=== PATIENT | female | born 1980 | race Hispanic/Latino ===

== ENCOUNTER 2022-02-04 08:16 | Emergency (ER) | payer MEDICAID, SELFPAY ==
--- NOTE | ~2022-02-04 | CT_ITS ---
EXAMINATION: CT brain wo con INDICATION: Headache COMPARISON: None TECHNIQUE: Standard unenhanced head CT. The dose-length product (DLP) was 529.67 mGy-cm. The mA was a djusted according to patient size. Iterative reconstruction technique was employed. FINDINGS: There is no intracranial hemorrhage, acute infarction, or abnormal mass lesion. The ventric les are normal. There is no abnormal mass effect or midline shift. The blackwell-white matter differentiat ion is normal. The basal cisterns are patent. The orbits are normal. The paranasal sinuses, mastoids and calvarium are normal. IMPRESSION: 1. No acute intracranial abnormality. Reviewed, dictated and finalized at location B.
[2022-02-04 08:19] VITALS: BP 127/94; PULSE 116; RESP 20; TEMP 37.1; O2SAT 100
[2022-02-04 08:43] LABS: Basophils Absolute Auto 0.1 K/mm3 (0.0-0.1); Eosinophils Absolute Auto 0.2 K/mm3 (0-0.3); Eosinophils Percent Auto 2.7 % (0-4.4); Hematocrit 45.5 % (37.0-47.0); Hemoglobin 14.5 g/dL (12.0-15.0); Immature Granulocyte Absolute 0.01 K/mm3 (0.00-0.031); Immature Granulocyte Percent A 0.2 % (0-0.5); Lymphocytes Absolute Auto 1.98 K/mm3 (0.9-3.2); Lymphocytes Percent Auto 31.7 % (18.3-44.2); Mean Corpuscular HGB Conc 31.9 g/dl (32-36); Mean Corpuscular Hemoglobin 32.1 pg (26-34); Mean Corpuscular Volume 100.7 fl (80-100); Mean Platelet Volume 12.2 fl (7.4-10.4); Monocytes Absolute Auto 0.5 K/mm3 (0.1-0.6); Monocytes Percent Auto 7.8 % (2.6-8.5); Neutrophils Absolute Auto 3.5 K/mm3 (1.3-6.7); Neutrophils Percent Auto 56.6 % (45.5-73.1); Platelet Count Result 219 k/mm3 (150-375); Red Blood Count 4.52 M/mm3 (4.2-5.4); Red Cell Distribution Width 11.9 % (11.5-14.5); White Blood Count 6.3 K/mm3 (4.5-10.0)
[2022-02-04 08:53] LABS: Alanine Aminotransferase 19 U/L (4-35); Alkaline Phosphatase 93 U/L (38-126); Anion Gap 8 mmol/L (8-16); Aspartate Amino Transferase 28 U/L (14-36); Bilirubin,Total 1.2 mg/dL (0.2-1.3); Blood Urea Nitrogen 13 mg/dL (7-17); Calcium 9.6 mg/dL (8.4-10.2); Carbon Dioxide 30 mmol/L (22-30); Chloride 101 mmol/L (98-107); Estimated CRCL calculation 75 ml/min; Estimated Glomerular Filt Rate > 60; Glucose 126 mg/dL (65-110); Lipase 200 U/L (23-300); Potassium 3.7 mmol/L (3.4-5.0); Sodium 139 mmol/L (137-145)
[2022-02-04 08:53] LABS: Appearance Urine Clear (Clear); Bacteria Urine Trace /hpf; Bilirubin Urine 1+ (Negative); Color Urine Yellow (Yellow); Glucose Urine UA Negative (Negative); Ketones Urine 2+ mg/dL (Negative); Leukocyte Esterase Ur 1+ LEU/UL (Negative); Mucus Urine Rare /lpf; Nitrate Urine Negative (Negative); Protein Urine 1+ mg/dL (Negative); RBC Urine 0-2 /hpf (0-2); Squamous Epithelial Cell Urine Moderate /hpf (Few); Urobilinogen Urine 0.2 mg/dL (<2.0)
[2022-02-04 08:56] LABS: Add Urine Microscopic? YES; Blood Urine Trace-Intact (Negative)
[2022-02-04] MEDS: ONDANSETRON INJ 4 MG/2 ML VIAL IV PUSH (09:12)
[2022-02-04] MEDS: SODIUM CHLORIDE 0.9% IV 1,000 ML 999 ML IV CONT (09:12)
[2022-02-04] MEDS: diphenhydrAMINE HCl INJ 50 MG/ML VIAL IV PUSH (09:13)
[2022-02-04] MEDS: methylPREDNISolone SOD SUCC 125 MG VIAL IV PUSH (09:13)
[2022-02-04] MEDS: KETOROLAC 30 MG/ML VIAL (*BKC) IV PUSH (09:13)
[2022-02-04 09:14] VITALS: BP 124/83; PULSE 92; RESP 13; O2SAT 100
--- NOTE | 2022-02-04 10:09 | ED.HA ---
HPI - Headache General Chief Complaint: Headache Stated Complaint: headache Time Seen by Provider: 02/04/22 08:42 Source: patient Mode of arrival: ambulatory Limitations: no limitations History of Present Illness HPI Narrative: Pt presents with what feels like her typical migraine RUBIO. Pt says it has nuria going on for a couple of days and her regular medicines are not relieving the pain. PT says she normally has right eye involvement with her RUBIO and does this time. Pt had MRI in not too distant past showing benign cysts. Pt took her BP and SBP was on 140's. MD elicited complaint: headache Onset (ago): day(s) (2) Onset description: gradually Location: right Severity: moderate Quality & Timing: throbbing Exacerbating factors: none Relieving factors: nothing Associated symptoms: photophobia Related Data Allergies Allergy/AdvReac Type Severity Reaction Status Date / Time morphine Allergy Rash Verified 02/04/22 08:24 Review of Systems Review of Systems: All systems reviewed & are unremarkable except as noted in HPI and below Exam Const: General: no acute distress Orientation/consciousness: patient oriented x3 HENMT: Head: normal to inspection Eyes: Conjunctivae: conjunctivae normal Pupils: Equal, round and reactive pupils present Other: r eye tearing a bit and lid depressed slighly but pt is able to open completely (pt says this is normal for her RUBIO's Neck: Neck: no meningeal signs Resp: Effort & Inspection: normal respiratory effort Auscultation: clear to auscultation bilaterally Cardio: Rate: regular rate Rhythm: regular rhythm GI: GI Palp: Yes Soft to palpation Auscultation: normal bowel sounds Skin: General skin exam: normal color Neuro: General: patient oriented x3, moves all extremities, no meningeal signs, no focal motor deficits and CN's II-XI intact bilaterally Cranial nerves: Yes Nystagmus not present Speech: normal speech Extrem: General: normal to inspection and no clubbing, cyanosis or edema Psych: Appearance: grossly normal Mental Status: mental status grossly normal Thought content: Yes Normal thought content present Course Vital Signs Vital signs: Vital Signs Temperature 98.7 F 02/04/22 08:19 Pulse Rate 116 H 02/04/22 08:19 Respiratory Rate 20 02/04/22 08:19 Blood Pressure 127/94 H 02/04/22 08:19 Pulse Oximetry 100 02/04/22 08:19 Temperature 98.7 F 02/04/22 08:19 Pulse Rate 86 02/04/22 10:31 Respiratory Rate 16 02/04/22 10:31 Blood Pressure 126/86 02/04/22 10:31 Pulse Oximetry 96 02/04/22 10:31 MDM - Headache Lab Data Result diagrams: 02/04/22 08:37 02/04/22 08:37 Labs: Lab Results 02/04/22 02/04/22 02/04/22 Range/Units 08:34 08:37 08:37 WBC 6.3 (4.5-10.0) K/mm3 RBC 4.52 (4.2-5.4) M/mm3 Hgb 14.5 (12.0-15.0) g/dL Hct 45.5 (37.0-47.0) % MCV 100.7 H (80-100) fl MCH 32.1 (26-34) pg MCHC 31.9 L (32-36) g/dl RDW 11.9 (11.5-14.5) % Plt Count 219 (150-375) k/mm3 MPV 12.2 H (7.4-10.4) fl Immature Gran % (Auto) 0.2 (0-0.5) % Neut % (Auto) 56.6 (45.5-73.1) % Lymph % (Auto) 31.7 (18.3-44.2) % [place] % (Auto) 7.8 (2.6-8.5) % Eos % (Auto) 2.7 (0-4.4) % Baso % (Auto) 1.0 (0.2-1.2) % Lymph # (Auto) 1.98 (0.9-3.2) K/mm3 [place] # (Auto) 0.5 (0.1-0.6) K/mm3 Eos # (Auto) 0.2 (0-0.3) K/mm3 Baso # (Auto) 0.1 (0.0-0.1) K/mm3 Abs Immat Gran (auto) 0.01 (0.00-0.031) K/mm3 Absolute Neuts (auto) 3.5 (1.3-6.7) K/mm3 Absolute Nucleated RBC 0.0 (0.0-0.012) K/mm3 Nucleated RBC % 0.0 (0.0-0.2) % Sodium 139 (137-145) mmol/L Potassium 3.7 (3.4-5.0) mmol/L Chloride 101 (98-107) mmol/L Carbon Dioxide 30 (22-30) mmol/L Anion Gap 8 (8-16) mmol/L BUN 13 (7-17) mg/dL Creatinine 0.80 (0.7-1.0) mg/dL Estim Creat Clear Calc 75 ml/min Estimated GFR > 60 (59 - ) Glucose 126 H (65-110
[2022-02-04 10:31] VITALS: BP 126/86; PULSE 86; RESP 16; O2SAT 96
== END 2022-02-04 10:37 | disposition home or self-care (01) ==
PROVIDERS: Emergency Provider Emergency Medicine
DX: R51.9 Headache, unspecified (principal)
CPT/HCPCS: 36415; 70450; 80053; 81001; 83690; 85025; 96361; 96374; 96375; 99284; J1200; J1885; J2405; J2930; J7030

== ENCOUNTER 2023-06-17 07:58 | Emergency (ER) | payer OTHER, BC, SELFPAY ==
--- NOTE | ~2023-06-17 | CT_ITS ---
EXAMINATION: CT lumbar spine wo con DATE: 06/17/2023 08:55 INDICATION: Midline low back pain. TECHNIQUE: Computed tomography (CT) of the lumbar spine was performed without intravenous contrast. A utomated exposure control and iterative reconstruction technique were employed. The dose-length produ ct was 438.85 mGy-cm. COMPARISON: None FINDINGS: The rectum is distended and contains stool. Bone alignment is normal. Vertebral body height s and intervertebral disc heights are normal. The following disc levels are specifically discussed: L1-L2: The disc does not extend beyond the endplate margin. There is mild bilateral facet joint osteo arthritis. There is no neural foraminal stenosis. There is no central canal stenosis. L2-L3: The disc does not extend beyond the endplate margin. There is mild bilateral facet joint osteo arthritis. There is no neural foraminal stenosis. There is no central canal stenosis. L3-L4: The disc does not extend beyond the endplate margin. There is mild bilateral facet joint osteo arthritis. There is no neural foraminal stenosis. There is no central canal stenosis. L4-L5: The disc is bulging. There is moderate bilateral facet joint osteoarthritis. There is mild nabeel ateral neural foraminal stenosis. There is mild central canal stenosis. L5-S1: The disc does not extend beyond the endplate margin. There is severe bilateral facet joint ost eoarthritis. There is no neural foraminal stenosis. There is no central canal stenosis. IMPRESSION: 1. Mild lumbar spondylosis. 2. Distended rectum containing stool. Reviewed, dictated and finalized at location A.
[2023-06-17 08:01] VITALS: BP 131/90; PULSE 76; RESP 16; TEMP 36.6; O2SAT 100
--- NOTE | 2023-06-17 08:59 | PC.NURSE ---
patient reports she is post-menopausal and does not have menses cycle. she refuses tylenol and lidocaine patch. it is like candy to me . Provider aware
--- NOTE | 2023-06-17 09:40 | PC.NURSE ---
patient eloped. provider aware
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
== END 2023-06-17 09:41 | disposition home or self-care (01) ==
PROVIDERS: Emergency Provider Preventive Medicine Aerospace Medicine
DX: M54.31 Sciatica, right side (principal)
CPT/HCPCS: 72131; 99284

== ENCOUNTER 2023-12-14 10:38 | Emergency (ER) | payer BC, SELFPAY ==
[2023-12-14] VITALS (12 sets, daily range): BP systolic 124–134; BP diastolic 88–93; PULSE 76–96; RESP 12–19; TEMP 37.4; O2SAT 96–100
--- NOTE | ~2023-12-14 | XR_ITS ---
Portable chest x-ray Comparison: None Clinical History: Cough, fever Findings: There is linear scar or atelectasis left lung base, otherwise clear lungs. Cardiomediasti nal silhouette is stable. Bones and soft tissues are unremarkable. Impression: Linear scar or atelectasis left lung base, otherwise clear lungs. Reviewed, dictated and finalized at location . Impression: Linear scar or atelectasis left lung base, otherwise clear lungs.
[2023-12-14] MEDS: SODIUM CHLORIDE 0.9% IV 1,000 ML 999 ML IV CONT (11:10)
[2023-12-14] MEDS: KETOROLAC 30 MG/ML VIAL (*BKC) IV PUSH (11:11)
[2023-12-14 11:38] LABS: Influenza A QL RT-PCR Negative (Negative); Influenza B QL RT-PCR Positive (Negative); RSV RNA, RT-PCR Negative (Negative); SARS-CoV-2 RNA PCR Negative (Negative)
--- NOTE | 2023-12-14 11:59 | ED.GENADULT ---
HPI - General Adult General Chief complaint: Upper Respiratory Infection Stated complaint: URI sx Time Seen by Provider: 12/14/23 10:54 History of Present Illness HPI narrative: Patient is a 43-year-old female who presents ER with body aches and cough. Ongoing for 4 days. Unsure if she has had fevers. She has had chills. Cough is nonproductive. She has developed a hoarse voice. No chest pain or chest pressure. No urinary symptoms or abdominal symptoms. Related Data Allergies Allergy/AdvReac Type Severity Reaction Status Date / Time morphine Allergy Rash Verified 12/14/23 11:06 Review of Systems Review of Systems: All systems reviewed & are unremarkable except as noted in HPI and below Constitutional: Constitutional: Reports chills, Reports fatigue and Reports weakness ENT: Denies nasal congestion and Reports sore throat Cardiovascular: Cardiovascular: Reports no additional cardiovascular complaints Respiratory: Respiratory: Reports cough, Denies dyspnea and Denies wheezing Gastrointestinal: Gastrointestinal: Reports no additional gastrointestinal complaints PMFSH Past Medical History Medical History (Updated 12/14/23 @ 12:05 by Les Combs MD) No significant past medical history Surgical History Surgical History (Updated 06/17/23 @ 19:25 by Sam Dyson MD) No significant past surgical history Social History Social History (Updated 06/17/23 @ 19:25 by Sam Dyson MD) Smoking status: Never smoker Alcohol intake: never Substance use: never Exam Narrative: GENERAL: Well-appearing, well-nourished, and in no acute distress. HEAD: Normocephalic, atraumatic. EYES: PERRL and EOMI. ENT: Mucous membranes moist. Normal-appearing posterior oropharynx. NECK: Supple. CHEST: Clear to auscultation. No respiratory distress. HEART: Regular rate and rhythm. Normal peripheral pulses. ABDOMEN: Soft, nontender, nondistended. EXTREMITIES: Normal range of motion. No edema. NEURO: Alert and oriented x3. PSYCH: Normal mood and affect. Course Course Emergency Course: Patient form results. She is outside the window to receive Tamiflu. Patient received Toradol and IV fluids while here. Vital Signs Vital signs: Vital Signs Temperature 99.3 F 12/14/23 10:55 Pulse Rate 90 12/14/23 10:55 Respiratory Rate 18 12/14/23 10:55 Blood Pressure 132/93 H 12/14/23 10:55 Pulse Oximetry 100 12/14/23 10:55 Oxygen Delivery Room Air 12/14/23 10:55 Temperature 99.3 F 12/14/23 10:55 Pulse Rate 90 12/14/23 10:55 Respiratory Rate 18 12/14/23 10:55 Blood Pressure 132/93 H 12/14/23 10:55 Pulse Oximetry 99 12/14/23 10:58 Oxygen Delivery Room Air 12/14/23 10:58 Medical Decision Making Vital Signs Vital Signs: Vital Signs Temperature 99.3 F 12/14/23 10:55 Pulse Rate 90 12/14/23 10:55 Respiratory Rate 18 12/14/23 10:55 Blood Pressure 132/93 H 12/14/23 10:55 Pulse Oximetry 100 12/14/23 10:55 Oxygen Delivery Room Air 12/14/23 10:55 Temperature 99.3 F 12/14/23 10:55 Pulse Rate 90 12/14/23 10:55 Respiratory Rate 18 12/14/23 10:55 Blood Pressure 132/93 H 12/14/23 10:55 Pulse Oximetry 99 12/14/23 10:58 Oxygen Delivery Room Air 12/14/23 10:58 Lab Data Labs: Lab Results 12/14/23 Range/Units 10:46 Influenza A (RT-PCR) Negative (Negative) Influenza B (RT-PCR) Positive A (Negative) RSV (RT-PCR) Negative (Negative) SARS-CoV-2 RNA (RT-PCR) Negative (Negative) Imaging Data Radiologist's impression: ITS Impressions Chest X-Ray 12/14/23 11:49 Impression: Linear scar or atelectasis left lung base, otherwise clear lungs. Discharge Plan Discharge Clinical Impression: Influenza B Patient Disposition: Home, Self-Care Condition: Stable Instructions: Influenza (ED) Additional Instructions: As discussed you have a viral illness. Unfort
== END 2023-12-14 13:13 | disposition home or self-care (01) ==
PROVIDERS: Physician Assistant; Emergency Provider Emergency Medicine
DX: J10.1 Influenza due to other identified influenza virus with other respiratory manifestations (principal); Z20.822 Contact with and (suspected) exposure to COVID-19
CPT/HCPCS: 71045; 87637; 96361; 96374; 99284; J1885; J7030

== ENCOUNTER 2024-09-04 11:53 | Emergency (ER) | payer SELFPAY ==
[2024-09-04] VITALS (19 sets, daily range): BP systolic 118–133; BP diastolic 79–97; PULSE 97; RESP 16; TEMP 36.1; O2SAT 94–100
--- NOTE | ~2024-09-04 | CT_ITS ---
EXAMINATION: CT cervical spine wo con DATE: 09/04/2024 13:33 INDICATION: Right neck pain. TECHNIQUE: Computed tomography (CT) of the cervical spine was performed without intravenous contrast. Automated exposure control and iterative reconstruction technique were employed. The dose-length pro duct was 275.57 mGy-cm. COMPARISON: None FINDINGS: There is kyphosis of cervical spine. There are changes of anterior fusion procedure from C4 to C6 with interbody devices and anterior plate and screws. There is bridging interbody bone at C5-C 6. Vertebral body heights are normal. Intervertebral disc heights are normal. The following disc leve ls are specifically discussed: C2-C3: There is no uncovertebral joint osteoarthritis. There is no facet joint osteoarthritis. There is no neural foraminal stenosis. There is no central canal stenosis. C3-C4: There is no uncovertebral joint osteoarthritis. There is no facet joint osteoarthritis. There is no neural foraminal stenosis. There is no central canal stenosis. C4-C5: There is no uncovertebral joint hypertrophy. There is mild bilateral facet joint osteoarthriti s. There is no neural foraminal stenosis. There is no central canal stenosis. C5-C6: There is mild left uncovertebral joint hypertrophy. There is mild right facet joint osteoarthr itis. There is mild left neural foraminal stenosis. There is no central canal stenosis. C6-C7: There is no uncovertebral joint osteoarthritis. There is no facet joint osteoarthritis. There is no neural foraminal stenosis. There is no central canal stenosis. C7-T1: There is no uncovertebral joint osteoarthritis. There is mild bilateral facet joint osteoarthr itis. There is no neural foraminal stenosis. There is no central canal stenosis. IMPRESSION: 1. Anterior fusion procedure from C4 to C6. 2. Mild cervical spondylosis. Reviewed, dictated and finalized at location A. EY MOTOR OPERATOR
--- NOTE | 2024-09-04 13:25 | ED_ITS ---
HPI - Extremity Problem General Chief complaint: Extremity Problem,Nontraumatic Stated complaint: pain on right side of body Time Seen by Provider: 09/04/24 12:46 History of Present Illness HPI Narrative: 44-year-old female presenting with acute on chronic neck pain. States that she had surgery on her neck approximately 14 months ago in [facility] as the surgery would not be covered by insurance here. States that she had follow-up with them over the summer and they gave her more of the medications that they had sent her home on. Unfortunately she is running out of these medicines and she feels that her pain has worsened. She sometimes has numbness in this arm but not today. Denies weakness. No further complaints. Related Data Allergies Allergy/AdvReac Type Severity Reaction Status Date / Time morphine Allergy Itching Verified 09/04/24 12:02 Review of Systems Review of Systems: All systems reviewed & are unremarkable except as noted in HPI and below PMFSH Past Medical History Medical History No significant past medical history Surgical History Surgical History No significant past surgical history Social History Social History Smoking status: Never smoker Alcohol intake: never Substance use: never Exam Narrative: GENERAL: Well-appearing, well-nourished, and in no acute distress. HEAD: Normocephalic, atraumatic. EYES: PERRLA and EOMI. ENT: Grossly unremarkable NECK: Supple. no midline tenderness, tender right paraspinal musculature ex tending into right trap and shoulder and into the upper arm, distal ROM is intact though she is hesitant to do any shoulder abduction as it elicits severe pain CHEST: No respiratory distress. HEART: Regular rate and rhythm. No murmur heard. Normal peripheral pulses. ABDOMEN: Soft, nontender, nondistended, normal active bowel sounds. EXTREMITIES: as above, no sensory deficits of the right arm, distal pulses intact SKIN: Warm, dry, no rash. NEURO: No focal deficits. Alert and oriented x3. PSYCH: Normal mood and affect. Course Vital Signs Vital signs: Vital Signs Temperature 97 F L 09/04/24 11:56 Pulse Rate 97 09/04/24 11:56 Respiratory Rate 16 09/04/24 11:56 Blood Pressure 126/94 H 09/04/24 11:56 Pulse Oximetry 100 09/04/24 11:56 Oxygen Delivery Room Air 09/04/24 11:56 Temperature 97 F L 09/04/24 11:56 Pulse Rate 97 09/04/24 11:56 Respiratory Rate 16 09/04/24 11:56 Blood Pressure 120/80 09/04/24 16:00 Pulse Oximetry 100 09/04/24 16:01 Oxygen Delivery Room Air 09/04/24 11:56 MDM - Extremity (Nontraumatic) MDM Narrative Medical decision making narrative: 44-year-old female presenting with acute on chronic neck pain radiating into her right arm. Vitals stable. Exam remarkable for the above. Patient has her medications on hand from her surgeon. Appears she has been taking cyclobenzaprine as well as an NSAID. She is taking some supplement that is [id number]. CT cervical spine shows no acute abnormalities. She has an anterior fusion as expected without any acute abnormalities. Blood work without acute abnormalities. Patient given a migraine cocktail and Flexeril and reports improvement in her pain. She feels comfortable going home which I think is reasonable. Will send in for naproxen and Flexeril. Advised that she follow- up closely with primary care. Appropriate return precautions given. Discharged in stable condition. Differential Diagnosis Differential diagnosis: Likely other ( Acute on chronic neck pain, cervical strain, migraines) Medical Records Attestation: I reviewed the patient's medical records. Lab Data Attestation: I reviewed the patient's lab results. 09/04/24 13:46 09/04/24 13:46 Labs: Lab Results 09/04/24 Range/Units 13:46 WBC 5.7 (4.5-10.0) K/mm3 RBC 4.71 (4.2-5.4) M/mm3 Hgb 15.1 H (12.0-15.0) g/dL Hct 44.9 (37.0-47.0) % MCV 95.3 (80-100) fl MCH 32.1 (26-34) pg MCHC 33.6 (32-36) g/dl RDW 12.0 (11.5-14.5) % Plt Count 191 (150-375) k/mm3 MPV 13.0 H (7.4-10.4) fl Immature Gran % (Auto) 0.0 (0-0.5) % Neut % (Auto) 52.4 (45.5-73.1) % Lymph % (Auto) 33.4 (18.3-44.2) % [place] % (Auto) 11.4 H (2.6-8.5) % Eos % (Auto) 1.6 (0-4.4) % Baso % (Auto) 1.2 (0.2-1.2) % Lymph # (Auto) 1.90 (0.9-3.2) K/mm3 [place] # (Auto) 0.7 H (0.1-0.6) K/mm3 Eos # (Auto) 0.1 (0-0.3) K/mm3 Baso # (Auto) 0.1 (0.0-0.1) K/mm3 Abs Immat Gran (auto) 0.00 (0.00-0.031) K/mm3 Absolute Neuts (auto) 3.0 (1.3-6.7) K/mm3 Absolute Nucleated RBC 0.000 (0.0-0.012) K/mm3 Nucleated RBC % 0.0 (0.0-0.2) % Sodium 138 (137-145) mmol/L Potassium 4.2 (3.4-5.0) mmol/L Chloride 102 (98-107) mmol/L Carbon Dioxide 30 (22-30) mmol/L Anion Gap 6 (4-12) mmol/L BUN 16 (7-17) mg/dL Creatinine 0.70 (0.7-1.0) mg/dL Estim Creat Clear Calc 82 ml/min Estimated GFR > 60 (59 - ) Glucose 94 (65-110) mg/dL Calcium 9.9 (8.4-10.2) mg/dL Imaging Data Radiologist's impression: ITS Impressions Cervical Spine CT 09/04/24 13:36 IMPRESSION: 1. Anterior fusion procedure from C4 to C6. 2. Mild cervical spondylosis. Critical Care Time Critical Care Time Critical Care Time: No Discharge Plan Discharge Clinical Impression: Neck pain with history of cervical spinal surgery, Migraine Patient Disposition: Home, Self-Care Condition: Stable Instructions: Antibiotic Form, Neck Pain (ED) Additional Instructions: The CT scan today shows no acute abnormalities. We have sent in for prescriptions for pain control. Please follow-up closely with primary care. If your symptoms worsen or other concerning symptoms arise, please return to the ER. Prescriptions: New naproxen 500 mg tablet 500 mg PO BID PRN (Reason: pain) Qty: 30 0RF cyclobenzaprine 10 mg tablet 10 mg PO TID PRN (Reason: muscle spasm) Qty: 30 0RF No Action clonazepam 0.5 mg tablet 0.5 mg PO HS Qty: 7 0RF Rx Instructions: administer 30 minutes before bedtime sumatriptan succinate 25 mg tablet 25 mg PO ONCE Qty: 20 0RF cyclobenzaprine 5 mg tablet 5 mg PO TID PRN (Reason: muscle spasm) Qty: 12 0RF lidocaine [Lidoderm] 5 % adhesive patch,medicated 1 patch topical DAILY Qty: 15 0RF Rx Instructions: leave on most painful area for up to 12 hrs Follow-up/Referrals: Angel Mckeon MD [Physician] -
[2024-09-04] MEDS: ONDANSETRON INJ 4 MG/2 ML VIAL (13:44)
[2024-09-04] MEDS: KETOROLAC 15 MG/ML VIAL (*BKC) IV PUSH (13:44)
[2024-09-04] MEDS: CYCLOBENZAPRINE HCL 10 MG TABLET PO (13:44)
[2024-09-04 13:53] LABS: Basophils Absolute Auto 0.1 K/mm3 (0.0-0.1); Basophils Percent Auto 1.2 % (0.2-1.2); Eosinophils Absolute Auto 0.1 K/mm3 (0-0.3); Eosinophils Percent Auto 1.6 % (0-4.4); Hematocrit 44.9 % (37.0-47.0); Hemoglobin 15.1 g/dL (12.0-15.0); Lymphocytes Percent Auto 33.4 % (18.3-44.2); Mean Corpuscular HGB Conc 33.6 g/dl (32-36); Mean Corpuscular Hemoglobin 32.1 pg (26-34); Mean Corpuscular Volume 95.3 fl (80-100); Monocytes Absolute Auto 0.7 K/mm3 (0.1-0.6); Monocytes Percent Auto 11.4 % (2.6-8.5); Neutrophils Percent Auto 52.4 % (45.5-73.1); Platelet Count Result 191 k/mm3 (150-375); Red Blood Count 4.71 M/mm3 (4.2-5.4); White Blood Count 5.7 K/mm3 (4.5-10.0)
[2024-09-04 14:02] LABS: Anion Gap 6 mmol/L (4-12); Blood Urea Nitrogen 16 mg/dL (7-17); Calcium 9.9 mg/dL (8.4-10.2); Carbon Dioxide 30 mmol/L (22-30); Chloride 102 mmol/L (98-107); Estimated CRCL calculation 82 ml/min; Estimated Glomerular Filt Rate > 60; Glucose 94 mg/dL (65-110); Potassium 4.2 mmol/L (3.4-5.0); Sodium 138 mmol/L (137-145)
[2024-09-04] MEDS: SODIUM CHLORIDE 0.9% IV 1,000 ML 999 ML IV CONT (14:30)
[2024-09-04] MEDS: PROCHLORPERAZINE EDISYLATE 10 MG/2 ML VIAL IV PUSH (14:30)
[2024-09-04] MEDS: diphenhydrAMINE HCl INJ 50 MG/ML VIAL 25 MG IV PUSH (14:30)
== END 2024-09-04 16:32 | disposition home or self-care (01) ==
PROVIDERS: Emergency Provider Emergency Medicine
DX: M54.2 Cervicalgia (principal); G43.909 Migraine, unspecified, not intractable, without status migrainosus
CPT/HCPCS: 36415; 72125; 80048; 85025; 96361; 96374; 96375; 99284; A9270; J0780; J1200; J1885; J2405; J7030

== ENCOUNTER 2024-09-13 07:39 | Emergency (ER) | payer SELFPAY ==
--- NOTE | ~2024-09-13 | XR_ITS ---
XR chest 1V portable 09/13/2024 08:41 Indication: Chest pain and cough Procedure: AP portable chest Comparison: 12/14/2023 Findings: There is multifocal pneumonia involving both lungs, most confluent in the right upper lobe. No significant effusion. No pneumothorax identified, although the lung apices are excluded. No acute osseous abnormality. Impression: 1: Multifocal bilateral pneumonia. Reviewed, dictated and finalized at location B. SHER POLISHER Impression: 1: Multifocal bilateral pneumonia.
[2024-09-13 07:52] VITALS: BP 124/80; PULSE 110; RESP 20; TEMP 38.2; O2SAT 100
[2024-09-13] MEDS: ACETAMINOPHEN 500 MG TABLET 1000 MG (08:01)
--- NOTE | 2024-09-13 08:23 | ED.URI ---
HPI - URI/Sore Throat General Chief Complaint: Upper Respiratory Infection Stated Complaint: URI, fever Time Seen by Provider: 09/13/24 07:49 History of Present Illness HPI Narrative: Patient states that for the last few days she has runny nose, cough, and now with some chest pain, fevers and chills. Related Data Allergies Allergy/AdvReac Type Severity Reaction Status Date / Time morphine Allergy Itching Verified 09/04/24 12:02 Review of Systems Review of Systems: All systems reviewed & are unremarkable except as noted in HPI and below PMFSH Past Medical History Medical History No significant past medical history Surgical History Surgical History No significant past surgical history Social History Social History Smoking status: Never smoker Alcohol intake: never Substance use: never Exam Narrative: EXAMINATION OF ORGAN SYSTEMS/BODY AREAS: Constitutional: Vital signs per nursing GENERAL:[No acute distress, non-toxic appearing.] HEAD: Normal with no signs of head trauma. EYES: EOMI, conjunctiva normal ENT: Hearing grossly intact LUNGS: Nonlabored breathing. slightly diminished lung sounds bilaterally HEART: slightly tachycardic ABD: [Soft], [nontender to palpation] EXT: Normal range of motion, No lower extremity swelling or tenderness SKIN: [No rashes or lesions.] NEURO: [Alert and oriented x 3. No gross focal sensory or strength deficits.] PSYCH: Normal affect Course Vital Signs Vital signs: Vital Signs Temperature 100.8 F H 09/13/24 07:52 Pulse Rate 110 H 09/13/24 07:52 Respiratory Rate 20 09/13/24 07:52 Blood Pressure 124/80 09/13/24 07:52 Pulse Oximetry 100 09/13/24 07:52 Oxygen Delivery Room Air 09/13/24 07:52 Temperature 100.8 F H 09/13/24 07:52 Pulse Rate 110 H 09/13/24 07:52 Respiratory Rate 20 09/13/24 07:52 Blood Pressure 124/80 09/13/24 07:52 Pulse Oximetry 100 09/13/24 07:52 Oxygen Delivery Room Air 09/13/24 07:52 MDM - URI/Sore Throat MDM Narrative Medical decision making narrative: Patient presenting with URI symptoms for the last 4-5 days, she does have a slight cough. Some diminished breath sounds. otherwise well appearing. Slightly tachycardic however I suspect that is from the fever, no DVT symptoms or risk factors for me to be concerned about PE. she is treated symptomatically, chest x-ray unfortunately does show pneumonia with infiltrates in the right upper lobe; she is given antibiotics, agreeable to follow-up, With strict return precautions. Family/ friend at bedside. Lab Data Labs: Lab Results 09/13/24 09/13/24 Range/Units 07:50 08:56 Influenza A (RT-PCR) Negative (Negative) Influenza B (RT-PCR) Negative (Negative) RSV (RT-PCR) Negative (Negative) SARS-CoV-2 RNA (RT-PCR) Negative (Negative) Group A Strep (PCR) Not detected (Negative) Discharge Plan Discharge Clinical Impression: Pneumonia Patient Disposition: Home, Self-Care Condition: Stable Instructions: Antibiotic Form, Pneumonia (ED) Additional Instructions: please take all the antibiotics as prescribed, if you start having any worsening chest pain, shortness of breath, or anything else concerning, please come back to the emergency room immediately. Please follow-up with your primary care doctor in the next few days to make sure that you are getting better. Patient Language: [place] Prescriptions: New azithromycin 250 mg tablet 250 mg PO DAILY 4 Days Qty: 4 0RF Rx Instructions: start on day 2 of therapy amoxicillin-pot clavulanate 875-125 mg tablet 1 tablet PO Q12H Qty: 10 0RF acetaminophen [Tylenol Extra Strength] 500 mg tablet 1,000 mg PO Q6H PRN (Reason: pain) Qty: 50 0RF famotidine 20 mg tablet 20 mg PO DAILY Qty: 30 0RF ibuprofen 600 mg tablet 600 mg PO TID PRN (Reason: fever or pain) Qty: 30 0RF ondansetron 4 mg tablet,disintegrating 4 mg PO Q8H PRN (Reason: nausea and vomiting) Qty: 10 0RF No Action clonazepam 0.5 mg tablet 0.5 mg PO HS Qty: 7 0RF Rx Instructions: administer 30 minutes before bedtime sumatriptan succinate 25 mg tablet 25 mg PO ONCE Qty: 20 0RF cyclobenzaprine 5 mg tablet 5 mg PO TID PRN (Reason: muscle spasm) Qty: 12 0RF lidocaine [Lidoderm] 5 % adhesive patch,medicated 1 patch topical DAILY Qty: 15 0RF Rx Instructions: leave on most painful area for up to 12 hrs naproxen 500 mg tablet 500 mg PO BID PRN (Reason: pain) Qty: 30 0RF cyclobenzaprine 10 mg tablet 10 mg PO TID PRN (Reason: muscle spasm) Qty: 30 0RF Follow-up/Referrals: UNKNOWN,DOCTOR [Primary Care Provider] -
[2024-09-13 08:39] LABS: Influenza A QL RT-PCR Negative (Negative); Influenza B QL RT-PCR Negative (Negative); RSV RNA, RT-PCR Negative (Negative); SARS-CoV-2 RNA PCR Negative (Negative)
[2024-09-13 09:15] VITALS: BP 118/78; PULSE 102; RESP 18; TEMP 37.7; O2SAT 97
[2024-09-13 09:30] LABS: Strep Group A RT-PCR NOT DETECTED (Negative)
[2024-09-13] MEDS: ONDANSETRON HCL ODT 4 MG TABLET PO (09:58)
[2024-09-13] MEDS: AMOXICILLIN/CLAVULANATE K 875-125 MG TAB 1 TABLET PO (09:58)
[2024-09-13] MEDS: AZITHROMYCIN 250 MG TABLET 500 MG PO (09:58)
[2024-09-13] MEDS: KETOROLAC 30 MG/ML VIAL (*BKC) 15 MG IM (09:58)
[2024-09-13 10:26] VITALS: BP 114/70; PULSE 92; RESP 16; TEMP 37.1; O2SAT 98
== END 2024-09-13 10:29 | disposition home or self-care (01) ==
PROVIDERS: Emergency Provider Emergency Medicine
DX: J18.9 Pneumonia, unspecified organism (principal); Z20.822 Contact with and (suspected) exposure to COVID-19
CPT/HCPCS: 71045; 87637; 87651; 96372; 99283; A9270; J1885

== ENCOUNTER 2025-08-21 08:07 | Emergency (ER) | payer SELFPAY ==
--- OUTSIDE RECORDS SUMMARY | 2021-10-13 08:42 | XMS_ITS | Continuity of Care Document ---
Author Organization [facility] Address [address] [place] [address] Phone Care Team Providers Care Banking Management Consulting Manager Name Role Phone Ching Santacruz Unavailable Unavailable Procedures Procedure Date Voided Encounter Voided Encounter Advance Directives Directive Yes / No Effective Date File Name No Information Encounters Encounter Description Practice Location Reason(s) For Visit Diagnoses Date Provider Providers Copied on Encounter [facility] , [address], [place], [place], [address] [place] [address], tel:[phone] Urgent Care No Information Tyler Flower. [address], [place], [address] [place] [address], . tel:[phone] [facility] , [address], [place], [address] [place] [address], tel:[phone] T Urgent Care No Information Tyler Flower. [address], [place], [address] [place] [address], . tel:[phone] Referring Provider: Ching Scott [address], [place], [address]. tel:[phone] Family History Family Member Type Diagnosis Age At Onset No Information Payers Payer name Insurance type Covered alliance party ID Marielos encarnacion(s) Peterson 16 [id number] Social History Type Description Quantity Date Captured Comments Sex Female Smoking Status No Information Chief Complaint And Reason For Visit No Information Reason For Referral Reason For Referral No Information History Of Present Illness Encounter Date Complaint History Of Prese nt Illness No Information Functional Status Date Functional Assessmen t No Information Instructions Date Instruction Additional Infor mation No Information Assessments Type Assessment Date No Information Patient Care Teams Name Effective Dates (start - stop) Status Members No Information
--- OUTSIDE RECORDS SUMMARY | 2021-10-13 08:42 | XMS_ITS | Continuity of Care Document ---
Author Organization [facility] Address [address] [place] [address] Phone Care Team Providers Care Recreational Vehicle Repairer Name Role Phone Ching Santacruz Unavailable Unavailable Procedures Procedure Date Voided Encounter Voided Encounter Advance Directives Directive Yes / No Effective Date File Name No Information Encounters Encounter Description Practice Location Reason(s) For Visit Diagnoses Date Provider Providers Copied on Encounter [facility] , [address], [place], [place], [address] [place] [address], tel:[phone] Urgent Care No Information Tyler Flower. [address], [place], [address] [place] [address], . tel:[phone] [facility] , [address], [place], [address] [place] [address], tel:[phone] T Urgent Care No Information Tyler Flower. [address], [place], [address] [place] [address], . tel:[phone] Referring Provider: Ching Scott [address], [place], [address]. tel:[phone] Family History Family Member Type Diagnosis Age At Onset No Information Payers Payer name Insurance type Covered democrat ID Marielos encarnacion(s) Peterson 16 [id number] Social History Type Description Quantity Date Captured [...]
--- OUTSIDE RECORDS SUMMARY | 2021-10-13 08:42 | XMS_ITS | Continuity of Care Document ---
Author Organization [facility] Address [address] [place] [address] Phone Care Team Providers Care Used Car Make Ready Mechanic Name Role Phone Ching Santacruz Unavailable Unavailable Procedures Procedure Date Voided Encounter Voided Encounter Advance Directives Directive Yes / No Effective Date File Name No Information Encounters Encounter Description Practice Location Reason(s) For Visit Diagnoses Date Provider Providers Copied on Encounter [facility] , [address], [place], [place], [address] [place] [address], tel:[phone] Urgent Care No Information Tyler Flower. [address], [place], [address] [place] [address], . tel:[phone] [facility] , [address], [place], [address] [place] [address], tel:[phone] T Urgent Care No Information Tyler Flower. [address], [place], [address] [place] [address], . tel:[phone] Referring Provider: Ching Scott [address], [place], [address]. tel:[phone] Family History Family Member Type Diagnosis Age At Onset No Information Payers Payer name Insurance type Covered alliance party ID Marielos encarnacion(s) Peterson 16 [id number] Social History Type Description Quantity Date Captured [...]
--- OUTSIDE RECORDS SUMMARY | 2021-10-13 08:42 | XMS_ITS | Continuity of Care Document ---
Author Organization [facility] Address [address] [place] [address] Phone Care Team Providers Care Hoisting Machine Operator Name Role Phone Ching Santacruz Unavailable Unavailable Procedures Procedure Date Voided Encounter Voided Encounter Advance Directives Directive Yes / No Effective Date File Name No Information Encounters Encounter Description Practice Location Reason(s) For Visit Diagnoses Date Provider Providers Copied on Encounter [facility] , [address], [place], [place], [address] [place] [address], tel:[phone] Urgent Care No Information Tyler Flower. [address], [place], [address] [place] [address], . tel:[phone] [facility] , [address], [place], [address] [place] [address], tel:[phone] T Urgent Care No Information Tyler Flower. [address], [place], [address] [place] [address], . tel:[phone] Referring Provider: Ching Scott [address], [place], [address]. tel:[phone] Family History Family Member Type Diagnosis Age At Onset No Information Payers Payer name Insurance type Covered constitution party ID Marielos encarnacion(s) Peterson 16 [id number] Social History Type Description Quantity Date Captured [...]
--- OUTSIDE RECORDS SUMMARY | 2021-10-13 08:42 | XMS_ITS | Continuity of Care Document ---
Author Organization [facility] Address [address] [place] [address] Phone Care Team Providers Care Machine Deburrer Name Role Phone Ching Santacruz Unavailable Unavailable Procedures Procedure Date Voided Encounter Voided Encounter Advance Directives Directive Yes / No Effective Date File Name No Information Encounters Encounter Description Practice Location Reason(s) For Visit Diagnoses Date Provider Providers Copied on Encounter [facility] , [address], [place], [place], [address] [place] [address], tel:[phone] Urgent Care No Information Tyler Flower. [address], [place], [place], [address] [place] [address], . tel:[phone] [facility] , [address], [place], [place], [address] [place] [address], tel:[phone] T Urgent Care No Information Tyler Flower. [address], [place], [address] [place] [address], . tel:[phone] Referring Provider: Ching Scott [address], [place], [address]. tel:[phone] Family History Family Member Type Diagnosis Age At Onset No Information Payers Payer name Insurance type Covered democrat ID Marielos encarnacion(s) Peterson 16 [id number] Social History Type Description Quantity Date Captured [...]
--- OUTSIDE RECORDS SUMMARY | 2021-10-13 08:42 | XMS_ITS | Continuity of Care Document ---
Author Organization [facility] Address [address] [place] [address] Phone Care Team Providers Care Gravel Wheeler Name Role Phone Ching Santacruz Unavailable Unavailable Procedures Procedure Date Voided Encounter Voided Encounter Advance Directives Directive Yes / No Effective Date File Name No Information Encounters Encounter Description Practice Location Reason(s) For Visit Diagnoses Date Provider Providers Copied on Encounter [facility] , [address], [place], [place], [address] [place] [address], tel:[phone] Urgent Care No Information Tyler Flower. [address], [place], [place], [address] [place] [address], . tel:[phone] [facility] , [address], [place], [place], [address] [place] [address], tel:[phone] T Urgent Care No Information Tyler Flower. [address], [place], [place], [address] [place] [address], . tel:[phone] Referring Provider: Ching Scott [address], [place], [address]. tel:[phone] Family History Family Member Type Diagnosis Age At Onset No Information Payers Payer name Insurance type Covered alliance party ID Marielos encarnacion(s) Peterson 16 [id number] Social History Type Description Quantity Date Captured [...]
--- OUTSIDE RECORDS SUMMARY | 2021-10-13 08:42 | XMS_ITS | Continuity of Care Document ---
Author Organization [facility] Address [address] [place] [address] Phone Care Team Providers Care Soil Conservation Aide Name Role Phone Ching Santacruz Unavailable Unavailable Procedures Procedure Date Voided Encounter Voided Encounter Advance Directives Directive Yes / No Effective Date File Name No Information Encounters Encounter Description Practice Location Reason(s) For Visit Diagnoses Date Provider Providers Copied on Encounter [facility] , [address], [place], [place], [address] [place] [address], tel:[phone] Urgent Care No Information Tyler Flower. [address], [place], [place], [address] [place] [address], . tel:[phone] [facility] , [address], [place], [address] [place] [address], tel:[phone] T Urgent Care No Information Tyler Flower. [address], [place], [address] [place] [address], . tel:[phone] Referring Provider: Ching Scott [address], [place], [address]. tel:[phone] Family History Family Member Type Diagnosis Age At Onset No Information Payers Payer name Insurance type Covered alliance party ID Marielos encarnacion(s) Peterson 16 [id number] Social History Type Description Quantity Date Captured [...]
--- OUTSIDE RECORDS SUMMARY | 2021-10-13 08:42 | XMS_ITS | Continuity of Care Document ---
Author Organization [facility] Address [address] [place] [address] Phone Care Team Providers Care Life Science Technical Officer Name Role Phone Ching Santacruz Unavailable Unavailable Procedures Procedure Date Voided Encounter Voided Encounter Advance Directives Directive Yes / No Effective Date File Name No Information Encounters Encounter Description Practice Location Reason(s) For Visit Diagnoses Date Provider Providers Copied on Encounter [facility] , [address], [place], [place], [address] [place] [address], tel:[phone] Urgent Care No Information Tyler Flower. [address], [place], [address] [place] [address], . tel:[phone] [facility] , [address], [place], [address] [place] [address], tel:[phone] T Urgent Care No Information Tyler Flower. [address], [place], [address] [place] [address], . tel:[phone] Referring Provider: Ching Scott [address], [place], [address]. tel:[phone] Family History Family Member Type Diagnosis Age At Onset No Information Payers Payer name Insurance type Covered alliance party ID Marielos encarnacion(s) Peterson 16 [id number] Social History Type Description Quantity Date Captured [...]
--- OUTSIDE RECORDS SUMMARY | 2021-10-13 08:42 | XMS_ITS | Continuity of Care Document ---
Author Organization [facility] Address [address] [place] [address] Phone Care Team Providers Care Turkey Cleaner Name Role Phone Ching Santacruz Unavailable Unavailable Procedures Procedure Date Voided Encounter Voided Encounter Advance Directives Directive Yes / No Effective Date File Name No Information Encounters Encounter Description Practice Location Reason(s) For Visit Diagnoses Date Provider Providers Copied on Encounter [facility] , [address], [place], [place], [address] [place] [address], tel:[phone] Urgent Care No Information Tyler Flower. [address], [place], [place], [address] [place] [address], . tel:[phone] [facility] , [address], [place], [address] [place] [address], tel:[phone] T Urgent Care No Information Tyler Flower. [address], [place], [address] [place] [address], . tel:[phone] Referring Provider: Ching Scott [address], [place], [address]. tel:[phone] Family History Family Member Type Diagnosis Age At Onset No Information Payers Payer name Insurance type Covered alliance party ID Marielos encarnacion(s) Peterson 16 [id number] Social History Type Description Quantity Date Captured [...]
--- NOTE | ~2025-08-21 | XR_ITS ---
EXAMINATION: XR chest 2V DATE: 08/21/2025 08:59 INDICATION: Cough TECHNIQUE: PA and lateral views of the chest were obtained. COMPARISON: Chest radiograph dated 09/13/2024 FINDINGS: The lungs are clear with no focal airspace opacities, pulmonary edema, pleural effusion or pneumothorax. The cardiomediastinal silhouette is normal. Lower cervical anterior spinal fusion with anterior plate and screw fixation. IMPRESSION: 1. No acute cardiopulmonary disease. Reviewed, dictated and finalized at location A. UCTION REPRODUCTION MANAGER
[2025-08-21 08:16] VITALS: BP 124/90; PULSE 100; RESP 20; TEMP 36.9; O2SAT 100
[2025-08-21 09:42] LABS: Hematocrit 41.9 % (37.0-47.0); Hemoglobin 13.5 g/dL (12.0-15.0); Immature Granulocyte Percent A 0.2 % (0-0.5); Immature Platelet Fraction Pct 12.6 % (0.9-11.2); Lymphocytes Absolute Auto 1.49 K/mm3 (0.9-3.2); Mean Corpuscular HGB Conc 32.2 g/dl (32-36); Mean Corpuscular Hemoglobin 31.3 pg (26-34); Mean Corpuscular Volume 97.2 fl (80-100); Nucleated Red Blood Cells Absolute Auto 0.000 K/mm3 (0.0-0.012); Nucleated Red Blood Cells Perc 0.0 % (0.0-0.2); Platelet Count Result 181 k/mm3 (150-375); Red Blood Count 4.31 M/mm3 (4.2-5.4); White Blood Count 8.0 K/mm3 (4.5-10.0)
[2025-08-21 09:46] LABS: Add Urine Microscopic? YES; Appearance Urine Clear (Clear); Glucose Urine UA Negative (Negative); Leukocyte Esterase Ur 2+ LEU/UL (Negative); Nitrate Urine Negative (Negative); Non Pathogenic Casts 0-2; Specific Grav Ur 1.021 (1.001-1.035)
[2025-08-21 10:00] LABS: Alanine Aminotransferase 16 U/L (6-35); Albumin Level 4.7 g/dL (3.5-5.1); Alkaline Phosphatase 73 U/L (38-126); Anion Gap 7 mmol/L (4-12); Aspartate Amino Transferase 27 U/L (14-36); Bilirubin,Total 0.8 mg/dL (0.2-1.3); Blood Urea Nitrogen 12 mg/dL (7-17); CRP 3.6 mg/dL (<1.0); Calcium 9.1 mg/dL (8.4-10.2); Carbon Dioxide 27 mmol/L (22-30); Chloride 105 mmol/L (98-107); Estimated CRCL calculation 89 ml/min; Estimated Glomerular Filt Rate > 60; Glucose 86 mg/dL (65-110); Potassium 4.4 mmol/L (3.4-5.0); Sodium 139 mmol/L (137-145); Total Protein 8.6 g/dL (6.3-8.2)
[2025-08-21 10:03] LABS: INR 1.0; Prothrombin Time 13.1 Seconds (11.1-14.7)
[2025-08-21 10:04] LABS: Partial Thromboplastin Time 30.7 Seconds (22.3-36.8)
--- NOTE | 2025-08-21 10:10 | ED_ITS ---
HPI - URI/Sore Throat General Chief Complaint: Upper Respiratory Infection Stated Complaint: COUGH, COLD SX Time Seen by Provider: 08/21/25 08:28 History of Present Illness HPI Narrative: Pt presents with fever and cough and nasal congestion for 5 days no improvement. Pt denies nausea and vomiting. Pt also has rash on left side of back. Related Data Allergies Allergy/AdvReac Type Severity Reaction Status Date / Time morphine Allergy Itching Verified 08/21/25 08:20 Review of Systems 2 Review of Systems: All systems reviewed & are unremarkable except as noted in HPI and below PMFSH Past Medical History Medical History No significant past medical history Surgical History Surgical History No significant past surgical history Social History Social History Smoking status: Never smoker Alcohol intake: never Substance use: never Exam 2 Const: General: healthy appearing and no acute distress Nutritional Appearance: well nourished Orientation/consciousness: patient oriented x3 Limitations: no limitations HENMT: Face/Nose/Sinus: Nasal discharge present Mouth: Yes Normal oral and palatal mucosa present Throat: posterior oropharynx normal Eyes: Pupils: Equal, round and reactive pupils present EOM: EOMs intact bilaterally Neck: Neck: normal visual inspection, no lymphadenopathy and no meningeal signs Chest: Chest palpation & inspection: normal inspection of the chest Resp: Effort & Inspection: normal respiratory effort Auscultation: clear to auscultation bilaterally Cardio: Rate: regular rate Rhythm: regular rhythm GI: GI Palp: Yes Soft to palpation and No Tenderness to palpation present (GI) Auscultation: normal bowel sounds Back/Spine/Pelvis: Back: no CVA tenderness Skin: General skin exam: normal color Rashes: no rashes Wounds: no wounds Neuro: General: patient oriented x3, moves all extremities, no meningeal signs and no focal motor deficits Speech: normal speech Extrem: General: normal to inspection and no clubbing, cyanosis or edema Psych: Mental Status: mental status grossly normal Affect: normal affect Attitude: cooperative Course Vital Signs Vital signs: Vital Signs Temperature 98.4 F 08/21/25 08:16 Pulse Rate 100 08/21/25 08:16 Respiratory Rate 20 08/21/25 08:16 Blood Pressure 124/90 08/21/25 08:16 Pulse Oximetry 100 08/21/25 08:16 Oxygen Delivery Room Air 08/21/25 08:16 Temperature 98.4 F 08/21/25 08:16 Pulse Rate 91 08/21/25 10:39 Respiratory Rate 18 08/21/25 10:39 Blood Pressure 111/74 08/21/25 10:39 Pulse Oximetry 100 08/21/25 10:39 Oxygen Delivery Room Air 08/21/25 08:16 MDM - URI/Sore Throat MDM Narrative Medical decision making narrative: Pt has shingles. will check ua and labs and cxr Differential Diagnosis Differential diagnosis: Likely upper respiratory infection, sinusitis, viral infection, bronchitis, influenza and pharyngitis Lab Data Attestation: I reviewed the patient's lab results. 08/21/25 09:11 08/21/25 09:11 Labs: Lab Results 08/21/25 Range/Units 09:11 WBC 8.0 (4.5-10.0) K/mm3 RBC 4.31 (4.2-5.4) M/mm3 Hgb 13.5 (12.0-15.0) g/dL Hct 41.9 (37.0-47.0) % MCV 97.2 (80-100) fl MCH 31.3 (26-34) pg MCHC 32.2 (32-36) g/dl RDW 12.6 (11.5-14.5) % Plt Count 181 (150-375) k/mm3 MPV 13.5 H (7.4-10.4) fl Immature Gran % (Auto) 0.2 (0-0.5) % Neut % (Auto) 69.4 (45.5-73.1) % Lymph % (Auto) 18.5 (18.3-44.2) % [place] % (Auto) 9.2 H (2.6-8.5) % Eos % (Auto) 2.1 (0-4.4) % Baso % (Auto) 0.6 (0.2-1.2) % Lymph # (Auto) 1.49 (0.9-3.2) K/mm3 [place] # (Auto) 0.7 H (0.1-0.6) K/mm3 Eos # (Auto) 0.2 (0-0.3) K/mm3 Baso # (Auto) 0.1 (0.0-0.1) K/mm3 Abs Immat Gran (auto) 0.02 (0.00-0.031) K/mm3 Absolute Neuts (auto) 5.6 (1.3-6.7) K/mm3 Absolute Nucleated RBC 0.000 (0.0-0.012) K/mm3 Nucleated RBC % 0.0 (0.0-0.2) % % Immature Plt Fraction 12.6 H (0.9-11.2) % PT 13.1 (11.1-14.7) Seconds INR 1.0 APTT 30.7 (22.3-36.8) Seconds Sodium 139 (137-145) mmol/L Potassium 4.4 (3.4-5.0) mmol/L Chloride 105 (98-107) mmol/L Carbon Dioxide 27 (22-30) mmol/L Anion Gap 7 (4-12) mmol/L BUN 12 (7-17) mg/dL Creatinine 0.63 L (0.7-1.0) mg/dL Estim Creat Clear Calc 89 ml/min Estimated GFR > 60 (59 - ) Glucose 86 (65-110) mg/dL Lactic Acid 0.8 (0.7-2.0) mmol/L Calcium 9.1 (8.4-10.2) mg/dL Total Bilirubin 0.8 (0.2-1.3) mg/dL AST 27 (14-36) U/L ALT 16 (6-35) U/L Alkaline Phosphatase 73 (38-126) U/L C-Reactive Protein 3.6 H (<1.0) mg/dL Total Protein 8.6 H (6.3-8.2) g/dL Albumin 4.7 (3.5-5.1) g/dL Urine Color Yellow (Yellow) Urine Appearance Clear (Clear) Urine pH 6.5 (5.0-9.0) Ur Specific [place] 1.021 (1.001-1.035) Urine Protein Trace (Negative) mg/dL Urine Glucose (UA) Negative (Negative) mg/dL Urine Ketones Trace H (Negative) mg/dL Ur Blood (Man) Negative (Negative) Urine Nitrate Negative (Negative) Urine Bilirubin Negative (Negative) Urine Urobilinogen 1.0 (<2.0) mg/dL Leukocyte Esterase Rfl 2+ H (Negative) JALYN/UL Urine RBC 0-2 (0-2) /hpf Urine WBC 11-20 H (0-3) /hpf Ur Squamous Epith Cells Occasional (Few) /hpf Urine Bacteria 2+ H /hpf Urine Casts 0-2 Influenza A (RT-PCR) Negative (Negative) Influenza B (RT-PCR) Negative (Negative) RSV (RT-PCR) Negative (Negative) SARS-CoV-2 RNA (RT-PCR) Negative (Negative) Imaging Data Attestation: I personally reviewed and interpreted this imaging study as follows: My impression: nad Radiologist's impression: [place] [address] [place] [address] XRay Report Signed Patient: Manasa Padron : 1980 MR#: [id number] Age: 45 Acct:[id number] Loc: [facility] ADM Date: 08/21/[address]: Ordering Physician: Rohit Chance III, DO Date of Service: 08/21/25 Procedure(s): XR chest 2V Accession Number(s): [id number] cc: Rohit Chance III, DO; COMBAT SYSTEMS OFFICER PHYSICIAN~ EXAMINATION: XR chest 2V DATE: 08/21/2025 08:59 INDICATION: Cough TECHNIQUE: PA and lateral views of the chest were obtained. COMPARISON: Chest radiograph dated 09/13/2024 FINDINGS: The lungs are clear with no focal airspace opacities, pulmonary edema, pleural effusion or pneumothorax. The cardiomediastinal silhouette is normal. Lower cervical anterior spinal fusion with anterior plate and screw fixation. IMPRESSION: 1. No acute cardiopulmonary disease. Reviewed, dictated and finalized at location A. CAID SPECIALIST Please be advised this is a medical document. It is intended for [id number] communication. It is written in medical language and may contain unfamiliar abbreviations or verbiage. Medical documents are intended to carry relevant information, facts as evident, and the clinical opinion of the practitioner at the time of the encounter. This report may have been done utilizing a voice recognition system. Attempts have been made to correct errors. However, there may be uncorrected grammatical, spelling, and recognition errors present. The file time of this note does not necessarily represent the time of service. Dictated By: Chandra Murray MD 08/21/25901 Signed By: <Electronically signed by Chandra Murray MD in OV> 08/21/25901 Discharge Plan Discharge Clinical Impression: Upper respiratory infection, UTI (urinary tract infection), Shingles Patient Disposition: Home Condition: Stable Instructions: Antibiotic Form, Shingles (ED), Kidney Infection (ED), Cold Symptoms (ED) Patient Language: Citizen Of [place] Prescriptions: New valacyclovir 1 gram tablet 1,000 mg PO Q12H Qty: 20 0RF cefdinir 300 mg capsule 300 mg PO Q12H Qty: 20 0RF No Action clonazepam 0.5 mg tablet 0.5 mg PO HS Qty: 7 0RF Rx Instructions: administer 30 minutes before bedtime sumatriptan succinate 25 mg tablet 25 mg PO ONCE Qty: 20 0RF cyclobenzaprine 5 mg tablet 5 mg PO TID PRN (Reason: muscle spasm) Qty: 12 0RF lidocaine [Lidoderm] 5 % adhesive patch,medicated 1 patch topical DAILY Qty: 15 0RF Rx Instructions: leave on most painful area for up to 12 hrs naproxen 500 mg tablet 500 mg PO BID PRN (Reason: pain) Qty: 30 0RF cyclobenzaprine 10 mg tablet 10 mg PO TID PRN (Reason: muscle spasm) Qty: 30 0RF azithromycin 250 mg tablet 250 mg PO DAILY 4 Days Qty: 4 0RF Rx Instructions: start on day 2 of therapy amoxicillin-pot clavulanate 875-125 mg tablet 1 tablet PO Q12H Qty: 10 0RF acetaminophen [Tylenol Extra Strength] 500 mg tablet 1,000 mg PO Q6H PRN (Reason: pain) Qty: 50 0RF famotidine 20 mg tablet 20 mg PO DAILY Qty: 30 0RF ibuprofen 600 mg tablet 600 mg PO TID PRN (Reason: fever or pain) Qty: 30 0RF ondansetron 4 mg tablet,disintegrating 4 mg PO Q8H PRN (Reason: nausea and vomiting) Qty: 10 0RF Follow-up/Referrals: PHYSICIAN,COMBAT SYSTEMS OFFICER [Primary Care Provider, Internal Medicine]
[2025-08-21 10:19] LABS: Influenza A QL RT-PCR Negative (Negative); Influenza B QL RT-PCR Negative (Negative); RSV RNA, RT-PCR Negative (Negative); SARS-CoV-2 RNA PCR Negative (Negative)
[2025-08-21 10:39] VITALS: BP 111/74; PULSE 91; RESP 18; O2SAT 100
--- OUTSIDE RECORDS SUMMARY | 2025-08-21 11:22 | XMS_ITS | Patient Health Record ---
Author Organization [facility] Address [address] [place] [address] Care Team Providers Care Finisher [employer] Name Role Phone MART AN Primary Care Provider [phone] Reason For Referral No Information Medications Medication SIG (Take, Route, Frequency, Duration) Notes Start Date End Date Status Fioricet 50-325-40 MG 1 tablet as needed Orally every 4 hrs Active Divalproex Sodium 500 MG Orally Active clonazePAM 2 MG 1 tablet Orally Once a day Active Omeprazole 40 MG 1 capsule Orally Onc e a day; Duration: 30 day(s) Active SUMAtriptan Succinate 100 MG 1 tablet as needed Orally Once a day; Duration: 30 days 11/17/2017 Active Furosemide 40 MG 1 tablet Orally Once a day Not-Taking Losartan Potassium 25 MG 1 tablet Orally Once a day Not-Taking Ketorolac Tromethamine 60 MG/2ML 0.5 ml one time Injection Once a day; Duration: 1 day(s) Active Relpax 40 MG 1 tablet as needed o ne time Orally Once a day; Duration: 1 day(s) Active Social History Tobacco Use: Social History Observation Description Date Details (start date - stop date) Never Smoker NA - NA Tobacco Use/Smoking Question Answer Notes Are you a nonsmoker Problems Problem Type SNOMED Code ICD Code Onset Dates Problem Status W/U Status Risk Notes Problem Epilepsy (98838674) Epilepsy, unspecified, not intractable, without status epilepticus (G40.909) Active confirmed Problem Migraine without aura, not refractory (disorder) (093718498) Migraine, unspecified, not intractable, without status migrainosus (G43.909) Active confirmed Problem Gastro-esophagea l reflux disease without esophagitis (480601781) Gastro-esophage al reflux disease without esophagitis (K21.9) Active confirmed Problem Amenorrhea (81632806) Amenorrhea, unspecified (N91.2) Active confirmed Problem Irregular menstruation (91747333) Irregular menstruation, unspecified (N92.6) Active confirmed Plan Of Treatment Pending Test Test Name Order Date Ultrasound : Pelvic 11/15/2017 Ultrasound : Transvaginal 11/15/2017 Hemoglobin A1c - L 11/24/2017 Urinalysis, Routine - L 11/24/2017 TSH - L 11/24/2017 CBC With Differential/Platelet - L 11/24 Lipid Panel - L 11/24/2017 Comp. Metabolic Panel (14) - L 8 Valproic Acid, Serum or Plasma 8 PAP SMEAR 11/24/2017 Insurance Providers Payer Name Payer Address Payer Phone Subscriber Number Group Number Insured Name Patient Relationship to Insured Coverage Start Date Coverage End Date [facility] [address] [place] [address] [id number] Manasa Gan Self - patient is the insured 8 Medications Administered Medication Instructions Date of Administration Dosage Notes toradol 11/15/2017 30 mg Medical (General) History Medical History History ICD Code Preclampsia Gastristis Epilepsy with crisis absent Anemia Migraine Elevated blood pressure insonmia 3 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
--- OUTSIDE RECORDS SUMMARY | 2025-08-21 11:23 | XMS_ITS | Patient Health Record ---
Author Organization [facility] Address [address] [place] [address] Support Name Relationship Address Phone TAMMY WHITMORE Guarantor Unknown Reason For Referral No Information Plan Of Treatment No Information Insurance Providers Payer Name Payer Address Payer Phone Subscriber Number Group Number Insured Name Patient Relationship to Insured Coverage Start Date Coverage End Date SELF PAY [address] [place] [id number] SY TAMMY WHITMORE Self - patient is the insured 8
== END 2025-08-21 11:14 | disposition home or self-care (01) ==
PROVIDERS: Emergency Provider Emergency Medicine
DX: J06.9 Acute upper respiratory infection, unspecified (principal); N39.0 Urinary tract infection, site not specified; B02.9 Zoster without complications
CPT/HCPCS: 36415; 71046; 80053; 81001; 83605; 85025; 85055; 85610; 85730; 86140; 87086; 87186; 87637; 99283